=== PATIENT | male | born 1965 | race Caucasian/White ===

== ENCOUNTER → 2018-11-10 | Day surgery (SDC) | payer OTHER ==
[~2018-11-10] MED LIST: ACETAMINOPHEN 325 MG TABLET PO PRN; ALBUTEROL SULFATE 2.5 MG/3 ML NEBU. NEB PRN; ATROPINE 0.5 MG/5 ML DISP.SYRIN. IV PRN; GINKGO; IV RINGERS SOLUTION,LACTATED 1,000 ML IV SCH; MIDAZOLAM HCL PF 2 MG/2 ML VIAL. IV PRN; OLME20TA17 PO; ONDANSETRON PF 4 MG/2 ML VIAL. IV PRN; PHENOL ORAL SPRAY 177ML BOTTLE. MM PRN; PROPOFOL 10,000 MCG/ML (20ML) VIAL IV ONE; diphenhydrAMINE 50 MG/ML VIAL IV PRN; testosterone
[2018-11-10 13:19] VITALS: BP 143/91
== END ==
LOC: SURG 11:13
PROVIDERS: ATTEND Internal Medicine Gastroenterology
DX: Z12.11 Encounter for screening for malignant neoplasm of colon (principal); K63.89 Other specified diseases of intestine; I10 Essential (primary) hypertension; E66.9 Obesity, unspecified; E11.9 Type 2 diabetes mellitus without complications; Z68.38 Body mass index [BMI] 38.0-38.9, adult; Z72.89 Other problems related to lifestyle; Z98.890 Other specified postprocedural states; Z79.84 Long term (current) use of oral hypoglycemic drugs
CPT/HCPCS: 45378; 82947; J2704; J7120

== ENCOUNTER 2019-11-10 00:23 | Emergency (ER) | payer OTHER ==
[~2019-11-10] VITALS: Ht 172.7 cm; Wt 113.6 kg
[~2019-11-10 00:23] MED LIST changes: -ACETAMINOPHEN 325 MG TABLET PO PRN; -ALBUTEROL SULFATE 2.5 MG/3 ML NEBU. NEB PRN; -ATROPINE 0.5 MG/5 ML DISP.SYRIN. IV PRN; -IV RINGERS SOLUTION,LACTATED 1,000 ML IV SCH; -MIDAZOLAM HCL PF 2 MG/2 ML VIAL. IV PRN; -ONDANSETRON PF 4 MG/2 ML VIAL. IV PRN; -PHENOL ORAL SPRAY 177ML BOTTLE. MM PRN; -PROPOFOL 10,000 MCG/ML (20ML) VIAL IV ONE; -diphenhydrAMINE 50 MG/ML VIAL IV PRN
--- NOTE | 2019-11-10 00:43 | PHYS DOC ---
Past History Past Medical History: Diabetes, High Cholesterol, Hypertension Adult General Chief Complaint Chief Complaint: COUGH HPI HPI Patient is a 54-year-old male who presents for URI-like symptoms. Onset was approximately 6 days ago. Nothing known makes better or worse. Patient reports waking up from sleep with feelings of generalized malaise and feeling unwell. He woke up his who is also been experiencing URI-like symptoms and they made the decision to come to our ER for evaluation together. Associated sy mptoms include dull headache, rhinorrhea, dry nonproductive cough, bilateral ear fullness, epigastric pain, generalized fatigue and chills. Patient denies any reportable fever, COVID-19 contact, recent long distance travel, hemoptysis, estrogen/testosterone use, or prior history of DVT/PE. Patient admits he works at local [employer] and deals with general public daily. He has many risk factors for heart disease such as obesity, hypertension, hyperlipidemia but has no prior cardiac history or work-up Review of Systems Review of Systems Fourteen body systems of review of systems have been reviewed. See HPI for pertinent positives and negative responses, other cisneros all other systems are negative, non-pertinent or non-contributory Allergies Allergies Allergies Coded Allergies Type Severity Reaction Last Updated Verified No Known Drug Allergies 11/10/18 No Physical Exam Physical Exam Constitutional: Well developed, well nourished, no acute distress, non-toxic appearance. HENT: Normocephalic, atraumatic, bilateral external ears normal, oropharynx moist, no oral exudates, moderate postnasal drip present, moderately engorged nasal turbinates with clear rhinorrhea present, external nose normal. Eyes: PERRLA, EOMI, conjunctiva normal, no discharge. Neck: Normal range of motion, no tenderness, supple, no stridor. Cardiovascular: Heart rate regular, sinus rhythm, no murmurs rubs or gallops Lungs & Thorax: Bilateral breath sounds clear to auscultation Abdomen: Bowel sounds normal, soft, epigastric tenderness on palpation, no guarding, no rebound, no masses, no pulsatile masses. Nonsurgical abdomen, no peritoneal signs Skin: Warm, dry, no erythema, no rash. Back: No tenderness, no CVA tenderness. Extremities: No tenderness, no cyanosis, no clubbing, ROM intact, no edema. Neurologic: Alert and oriented X 3, grossly normal motor & sensory function, no focal deficits noted. Psychologic: Affect normal, judgement normal, mood normal. Current Patient Data Vital Signs Vital Signs Date Time Temp Pulse Resp B/P (MAP) Pulse Ox O2 Delivery O2 Flow Rate FiO2 11/10/19 00:23 98.0 98 20 162/110 (127) 95 Room Air EKG EKG EKG ordered and interpreted by myself at 011 0 hours as sinus rhythm at 83 bpm, unremarkable intervals, left axis deviation, no acute ischemic findings, no obvious fascicular blocks, no STEMI Radiology/Procedures Radiology/Procedures PROCEDURE: PORTABLE CHEST 1V PORTABLE CHEST 1V Clinical Indication: Shortness of breath. Comparison: None. Findings: The cardiomediastinal silhouette is normal. Lungs are clear. There is no pneumothorax. No pleural effusion is appreciated. There are 2 small well-corticated bone fragments at the right acromioclavicular joint. Finding may be congenital or due to old injury. IMPRESSION: No acute cardiopulmonary process. Electronically signed by: Camden Pinto MD (11/10/2019 1:17 AM) [facility] Course & Med Decision Making Course & Med Decision Making Ambulatory patient seen on immediate ER arrival ABCs grossly non-concerning Comprehensive history and physical exam performed, given extent of risk factors and presenting symptoms decision made to pursue further diagnostic work-up Discussed most likely diagnosis of viral syndrome, I cannot rule out COVID-19 at this time given current pandemic and patient working in contact with the general public, he was tested for this today There were no emergent and/or surgical findings on physical exam today, diagnostic work-up was also grossly benign. I disclose this might be an acute presentation of more concerning pathology but at present, no indication for further work-up and/or need for hospitalization at this time I feel patient is fit for discharge home with continued supportive care advised. I educated him that he was now a person under investigation, the meaning of this, the importance of self quarantining, good hand hygiene etc. I disclosed patient is to continue quarantining at home until notified of either positive or negative result from our ER, he understood this well Strict return precautions were discussed with good understanding by patient, all questions and concerns addressed prior to ER departure home in stable condition. I advised patient follow-up with PCP in upcoming 7 to 28 days for ER follow-up following acute illness resolution Anabella Disclaimer Anabella Disclaimer This electronic medical record was generated, in whole or in part, using a voice recognition dictation system. The HEART Score for CP Pts HEART Score for Chest Pain: HEART Score for Chest Pain Response (Comments) Value History Slighlty/Non-Suspicious 0 ECG Normal 0 Age >45 - < 65 1 Risk Factors >3 Risk Factors or Hx CAD 2 Troponin < Normal Limit 0 Total 3 Risk Factors: Risk Factors: DM, Current or recent (<one month) smoker, HTN, HLP, family history of CAD, obesity. Risk Scores: Score 0 - 3: 2.5% MACE over next 6 weeks - Discharge Home Score 4 - 6: 20.3% MACE over next 6 weeks - Admit for Clinical Observation Score 7 - 10: 72.7% MACE over next 6 weeks - Early Invasive Strategies Departure Departure: Impression: Primary Impression: Viral syndrome Additional Impressions: Person under investigation for COVID-19 Epigastric pain Hyperglycemia due to type 2 diabetes mellitus Disposition: HOME/RESIDENCE PRIOR TO ADM Condition: STABLE Referrals: ANIBAL COLLINS (PCP) Patient Instructions: Diet for Gastroesophageal Reflux Disease, Adult, Viral Syndrome Additional Instructions: Short You were evaluated in the Emergency Department today for a cough. Your evaluation suggests a viral infection such as Coronavirus. It is important that you continue to self isolate and practice good hygiene at home. Please follow up with your primary care physician as discussed. Return to the Emergency Department if you experience worsening cough, fever, shortness of breath, recurrent vomiting, lethargy, or any other concerning symptoms. Thank you for choosing us for your care. Usted fue evaluado en el Departamento de Emergencia hoy por tos. Alex evaluacin sugiere yvonne infeccin viral juancarlos el coronavirus. Es importante que contine aislndose y practicando yvonne buena higiene en el hogar. Eileen un seguimiento con alex mdico de atencin primaria juancarlos se discuti. Regrese al Departamento de Emergencias si experimenta un empeoramiento de la tos, fiebre, falta de aliento, vmitos recurrentes, letargo o cualquier otro sntoma relacionado. Loren por elegir nosotros para alex atencin. Home Care Instructions for Patients with Mild Respiratory Infection Most people with respiratory infections like colds, the flu, and Coronavirus Disease (COVID-19) will have mild illness and can get better with appropriate home care and without the need to see a provider. People who are elderly, , or have a weak immune system, or other medical problem are at higher risk of more serious illness or complications. It is recommended that they carefully monitor their symptoms closely and seek medical care early if their symptoms get worse. Treatment There is no specific treatment for most viruses including those that that cause the common cold and those that cause COVID-19. Sometimes there is treatment for the viruses that cause influenza if given early. Antibiotics treat infections caused by bacteria, but they do not work against viruses.Most people recover on their own from these viruses, including COVID-19. Here are steps that you can take to help you get better: Rest Drink plenty of fluids Take iqar-udh-hqizkhj cold and flu medications to reduce fever and pain. Follow the instructions on the package, unless your doctor gave you instructions. Note that these medicines do not ``cure the illness and therefore do not stop you from spreading germs. Children should not be given medication that contains aspirin (acetylsalicylic acid) because it can cause a rare but serious illness called Doroteo syndrome. Medicines without aspirin include acetaminophen (Tylenol) and ibuprofen (Advil, Motrin). Children younger than age 2 should not be given any ove a-fcx-jkzsead cold medications without first speaking with a doctor.Seeking Medical Care You should seek medical care if you are not getting better within a week, or if your symptoms get worse. If you are elderly, , have a weak immune system, or other medical problems, call your doctor right away. It is best to call ahead of time to discuss your symptoms, if possible. This may allow you to receive the advice you need by phone. By avoiding a visit to a healthcare facility, you protect yourself from getting a new infection and protect others from catching an infection from you. If you do visit a healthcare facility, put on a mask to protect other patients and staff. It is recommended that you seek medical care for serious symptoms, such as: People with potentially life-threatening symptoms should call 911. If possible, put on a facemask before emergency medical services arrive.PROTECTING OTHERS Follow the steps below to help prevent the disease from spreading to people in your home and community.Stay home when you are sick Stay home - do not go to work, school, or public areas. Stay home for at least 24 hours after your symptoms have gone away without the use of fever-reducing medicines. If you must leave home while you are sick, try to avoid using public transportation, ride-shares, and taxis. Wear a mask if possible. Separate yourself from other people and animals in your home Stay in a specific room and away from other people in your home as much as possible. Use a separate bathroom, if available. Try to stay at least 6 feet from others. Do not handle pets or other animals while you are sick. Cover your coughs and sneezes Cover your mouth and nose with a tissue when you cough or sneeze. Throw used tissues in a lined trash can; immediately wash your hands. Avoid sharing personal household items Do not share dishes, drinking glasses, cups, eating utensils, towels, or bedding with other people or pets in your home. Wash them thoroughly with soap and water after use. Clean your hands often Wash your hands often with soap and water for at least 20 seconds. If soap and water are not available, clean your hands with an alcohol-based hand wastewater treatment plant attendant that contains at least 60% alcohol, covering all surfaces of your hands and rubbing them together until they feel dry. Use soap and water if your hands are visibly dirty. Clean all ``high-touch surfaces every day High touch surfaces include counters, tabletops, doorknobs, bathroom fixtures, toilets, phones, keyboards, tablets, and bedside tables. Also, clean any surfaces that may have body fluids on them. Use a household cleaning spray or wipe, according to the product label instructions. COVID-19 (Novel Coronavirus) FAQs for Inquiring Patients What do you do if you are worried that you have been exposed to COVID-19 but are without any symptoms? If you develop symptoms that may indicate an infection, contact your physician. These include fever, cough, and shortness of breath. Testing is not available for asymptomatic individuals, regardless of travel history. To reduce the chance of getting sick use general infection prevention measures such as hand washing, covering your mouth and nose when you cough or sneeze and discarding any tissues carefully, and staying home when you are sick.Can exceptions be made for patients who are really worried and want to be tested? Presently testing is only available through the [facility] Department of Public Health and Centers for Disease Control and Prevention. Only patients who meet the updated COVID-19 PUI definition may be tested. We do not control or set the PUI definition or evaluation criteria. We are unable to provide testing to patients who do not meet the strict criteria. Should patients cancel or postpone an upcoming trip? The decision about travel is personal and should be made in the context of a persons underlying health conditions, reason for travel and necessity of tr ortega. Travel insurance generally does not cover cancellations due to concerns of infectious disease outbreaks. The Center for Disease Control has a section on travel notices. Situations are changing frequently and you should monitor the site for updates. Should situations change rapidly in a foreign country while they are traveling, you could be subject to quarantine or restrictions upon return to the [facility]. It is best to have a plan on how to return urgently if needed during a trip abroad. Because of how air circulates and is filtered on airplanes, most viruses do not spread easily on airplanes. CDC does not recommend use of facemasks during air travel.What other general precautions are advised? Patients should be instructed to: Avoid close contact with people who are sick. Avoid touching your eyes, nose and mouth. Stay home from work or school when they are sick. If you have a fever, you should remain home until 24 hours after fever resolves. Clean and disinfect frequently touched objects and surfaces using a regular household cleaning spray or wipe. Sneeze/cough into their elbow, not your hand. Practice frequent hand hygiene with soap and water (at least 20 seconds) or alcohol-based hand rub. Consider avoiding crowded places or mass gatherings, especially if you are immunocompromised or have chronic lung disease. There is no evidence to support transmission of COVID-19 from goods imported from [place]. Are there any special precautions that are recommended if I am ? There is not yet any information available about the susceptibility of women to COVID-19. As a general rule, women may be more susceptible to viral respiratory infections and at risk for more severe illness. The CDC guidance for COVID-19 and has answers to questions about transmission during delivery, as well as other situations. Should food, water, or medications be stockpiled? Should people telecommute? The CDC has excellent information on this. Please visit the CDCs guidance for getting your household ready for COVID-19. What should I do if I start feeling sick at work? And what should the workplace do for anyone exposed? Anyone who is sick with a fever and cough should stay home from work until at least 24 hours after resolution of fever, regardless of concerns for COVID-19. It is still influenza (flu) season and influenza remains far more common. Justification of Admission: Justification of Admission: Justification of Admission Dx: N/A Problem Qualifiers SAMANTHA AYALA DO Nov 10, 2019 00:43
--- NOTE | 2019-11-10 01:20 | RAD ---
PORTABLE CHEST 1V Clinical Indication: Shortness of breath. Comparison: None. Findings: The cardiomediastinal silhouette is normal. Lungs are clear. There is no pneumothorax. No pleural effusion is appreciated. There are 2 small well-corticated bone fragments at the right acromioclavicular joint. Finding may be congenital or due to old injury. IMPRESSION: No acute cardiopulmonary process. Electronically signed by: Camden Pinto MD (11/10/2019 1:17 AM) [facility]
[2019-11-10 01:31] LABS: BASO % 1 % (0-3); EOS # 0.1 x10^3/uL (0.0-0.7); EOS % 2 % (0-3); HEMATOCRIT 43.9 % (39.0-53.0); HEMOGLOBIN 15.5 g/dL (13.0-17.5); LYMPH # 1.2 x10^3/uL (1.0-4.8); LYMPH % 36 % (24-48); MEAN CORPUSCULAR HEMOGLOBIN 32 pg (25-35); MEAN CORPUSCULAR HGB CONC 35 g/dL (31-37); MEAN CORPUSCULAR VOLUME 90 fL (79-100); MONO # 0.4 x10^3/uL (0.0-1.1); MONO % 11 % (0-9); NEUT # 1.7 x10^3uL (1.8-7.7); NEUT % 51 % (31-73); PLATELET COUNT 90 x10^3/uL (140-400); RED BLOOD COUNT 4.89 x10^6/uL (4.30-5.70); RED CELL DISTRIBUTION WIDTH 12.6 % (11.5-14.5); WHITE BLOOD COUNT 3.3 x10^3/uL (4.0-11.0)
[2019-11-10 01:34] LABS: CALCIUM 8.6 mg/dL (8.5-10.1); CREATININE 1.3 mg/dL (0.7-1.3); GFR 57.7; POTASSIUM 3.6 mmol/L (3.5-5.1)
[2019-11-10 01:35] VITALS: BP 139/94
[2019-11-10 01:40] LABS: ALBUMIN 3.7 g/dL (3.4-5.0); TOTAL BILIRUBIN 0.3 mg/dL (0.2-1.0); TOTAL PROTEIN 7.3 g/dL (6.4-8.2)
--- NOTE | 2019-11-10 03:10 | EKG ---
[facility] [address] [place] [address] Test Date: 2019-11-10 Test Time: 01:02:13 Pat Name: CATHIE MELTON Department: Room: Gender: M [place]: : 1965 Requested By: SAMANTHA AYALA Order Number: [id number] Reading MD: Measurements Intervals [place] Rate: 83 P: 26 MA: 176 QRS: -18 QRSD: 96 T: 31 QT: 340 QTc: 400 Interpretive Statements SINUS RHYTHM LEFTWARD AXIS OTHERWISE NORMAL ECG RI6.02 No previous ECG available for comparison
--- NOTE | 2019-11-12 08:13 | NUR ---
IP: attempt to notify patient of COVID result, left message to call back.
--- NOTE | 2019-11-12 15:02 | NUR ---
IP: attempt to return patient call for COVID results, left message to call back.
--- NOTE | 2019-11-12 15:20 | NUR ---
IP: discussed COVID test resutls with patient and precautions, answered questions.
== END 2019-11-10 02:00 | disposition home or self-care (01) ==
LOC: ER 00:23
DX: U07.1 COVID-19 (principal); B34.9 Viral infection, unspecified; E11.65 Type 2 diabetes mellitus with hyperglycemia; R10.13 Epigastric pain; E78.00 Pure hypercholesterolemia, unspecified; I10 Essential (primary) hypertension
CPT/HCPCS: 36415; 71045; 80053; 83690; 84484; 85025; 93005; 99285; C9803; U0003

== ENCOUNTER → 2019-11-23 | Outpatient (CLI) | payer OTHER ==
[2019-11-10 01:35] VITALS: BP 139/94
== END | disposition home or self-care (01) ==
LOC: LAB 13:05
PROVIDERS: ATTEND Physician Assistant Medical
DX: Z20.828 Contact with and (suspected) exposure to other viral communicable diseases (principal)
CPT/HCPCS: U0003-CS